=== PATIENT | female | born 1985 | race African-American/Black ===

== ENCOUNTER 2021-08-14 21:48 | Emergency (ER) | payer OTHER ==
[~2021-08-14] VITALS: Ht 147.3 cm; Wt 82.0 kg
[2021-08-14 21:54] VITALS: BP 141/95
[2021-08-14] MEDS ORDERED: ONDANSETRON HCL 4MG/2ML INJ IV ONE (23:30)
[2021-08-14] MEDS ORDERED: MORPHINE SULFATE 4 MG/ML CPJ (NOT FOR IM USE) IV ONE (23:30)
[2021-08-15 00:27] LABS: INR 1.2; PROTHROMBIN TIME 12.8 sec (9.6-11.0)
[2021-08-15 00:29] LABS: HEMATOCRIT. 29.2 % (36.0-48.0); HEMOGLOBIN. 9.4 g/dL (12.0-16.0); MEAN CORPUSCULAR HEMOGLOBIN 26.7 pg (28.0-32.0); MEAN CORPUSCULAR VOLUME 82.6 fL (81.0-99.0); MEAN PLATELET VOLUME 8.4 fl (7.4-10.4); PLATELET 203 x1000/uL (130-400); RED BLOOD CELL COUNT 3.54 mill/uL (4.2-5.4); RED CELL DISTRIBUTION WIDTH 15.3 % (11.6-14.6)
[2021-08-15 00:59] LABS: CHLORIDE 101 mEq/L (98-107)
[2021-08-15 05:57] LABS: PLATELET ESTIMATE NORMAL
== END 2021-08-15 03:03 | disposition home or self-care (01) ==
LOC: ER 21:48
DX: K91.841 Postprocedural hemorrhage of a digestive system organ or structure following other procedure (principal); D72.829 Elevated white blood cell count, unspecified; Z98.51 Tubal ligation status; R11.0 Nausea
CPT/HCPCS: 36415; 80053; 85025; 86850; 86900; 99283